=== PATIENT | female | born 1950 | race Caucasian/White ===

== ENCOUNTER 2021-10-07 10:33 | Outpatient (CLI) | payer MEDICARE | END 2021-10-07 10:34 | disposition home or self-care (01) | LOC: CSHMRI 10:33 | PROVIDERS: ATTEND Family Medicine | DX: M48.062 Spinal stenosis, lumbar region with neurogenic claudication (principal); M47.816 Spondylosis without myelopathy or radiculopathy, lumbar region; M51.36 Other intervertebral disc degeneration, lumbar region; M48.061 Spinal stenosis, lumbar region without neurogenic claudication; M41.9 Scoliosis, unspecified; M48.07 Spinal stenosis, lumbosacral region | CPT/HCPCS: 72148 ==

== ENCOUNTER 2023-09-14 12:33 | Outpatient (CLI) | payer OTHER | END 2023-09-14 12:34 | disposition home or self-care (01) | LOC: CSHULT 12:33 | PROVIDERS: ATTEND Internal Medicine | DX: K74.3 Primary biliary cirrhosis (principal); R13.10 Dysphagia, unspecified; K76.9 Liver disease, unspecified | CPT/HCPCS: 76705 ==

== ENCOUNTER 2024-03-12 10:12 | Outpatient (CLI) | payer MEDICARE, OTHER | END 2024-03-12 10:13 | disposition home or self-care (01) | LOC: CSHMAMMO 10:12 | PROVIDERS: ATTEND Family Medicine Sports Medicine | DX: Z13.820 Encounter for screening for osteoporosis (principal); M85.851 Other specified disorders of bone density and structure, right thigh; M85.852 Other specified disorders of bone density and structure, left thigh | CPT/HCPCS: 77080 ==

== ENCOUNTER 2024-03-12 10:48 | Outpatient (CLI) | payer MEDICARE, OTHER | END 2024-03-12 10:49 | disposition home or self-care (01) | LOC: CSHRAD 10:48 | PROVIDERS: ATTEND Internal Medicine | DX: K74.3 Primary biliary cirrhosis (principal); R13.10 Dysphagia, unspecified | CPT/HCPCS: 76705 ==

== ENCOUNTER 2024-09-02 09:01 | Outpatient (CLI) | payer OTHER | END 2024-09-02 09:02 | disposition home or self-care (01) | LOC: CSHULT 09:01 | PROVIDERS: ATTEND Internal Medicine | DX: K74.3 Primary biliary cirrhosis (principal); R13.10 Dysphagia, unspecified | CPT/HCPCS: 76705 ==

== ENCOUNTER 2025-09-04 10:59 | Outpatient (CLI) | payer OTHER | END 2025-09-04 11:00 | disposition home or self-care (01) | LOC: CSHMRI 10:59 | PROVIDERS: ATTEND Student in an Organized Health Care Education/Training Program | DX: R29.898 Other symptoms and signs involving the musculoskeletal system (principal); M47.26 Other spondylosis with radiculopathy, lumbar region; Z98.890 Other specified postprocedural states | CPT/HCPCS: 72148 ==

== ENCOUNTER 2025-09-15 08:18 | Outpatient (CLI) | payer OTHER ==
[2025-09-15 09:01] LABS: Estimated GFR - POC 47.0
== END 2025-09-15 08:19 | disposition home or self-care (01) ==
LOC: CSHMRI 08:18
PROVIDERS: ATTEND Physician Assistant Medical
DX: K74.3 Primary biliary cirrhosis (principal); R25.2 Cramp and spasm
CPT/HCPCS: 36415; 74183; 82565